=== PATIENT | female | born 1945 | race Caucasian/White ===

== ENCOUNTER 2018-03-04 15:03 | Emergency (ER) | payer OTHER, MEDICARE ==
[2018-03-04] MEDS ORDERED: VITAMIN C500 M6 PO (15:33)
[2018-03-04] MEDS ORDERED: VITAMIN E400 UNI3 PO (15:33)
[2018-03-04 15:40] LABS: ABSOLUTE BASOPHIL COUNT 0 /CUMM (0.0-0.2); ABSOLUTE EOSINOPHIL COUNT 0 /CUMM (0.0-0.7); ABSOLUTE LYMPH COUNT 1.1 /CUMM (1.2-3.4); ABSOLUTE MONOCYTE COUNT 1.4 /CUMM (0.10-0.60); BASOPHIL % 0 % (0.0-2.0); EOSINOPHIL % 0.1 % (0-5); GRANULOCYTE % 80.2 % (42.2-75.2); HEMATOCRIT 43.8 % (37-47); MEAN CORPUSCULAR HGB 31.5 PG (27.0-31.0); MEAN CORPUSCULAR HGB CONC 33.9 G/DL (33.0-37.0); MEAN CORPUSCULAR VOLUME 92.8 FL (81.0-99.0); MEAN PLATELET VOLUME 8.6 FL (7.4-10.4); PLATELET COUNT 269 /CUMM (130-400); RBC DISTRIBUTION WIDTH 14.6 % (11.5-14.5); RED BLOOD CELL CT 4.72 /CUMM (4.20-5.40); WHITE BLOOD CELL COUNT 12.5 /CUMM (4.8-10.8)
--- NOTE | 2018-03-04 16:49 | RADIOLOGY REPORT ---
EXAMINATION: XR CHEST CLINICAL INFORMATION: Fever and hemoptysis. COMPARISON: Chest radiography 10/22/2017. TECHNIQUE: 2 views of the chest were obtained. FINDINGS: The lungs are well expanded. There is left lower lung opacification with adjacent pleural effusion. No right lung consolidation. No pneumothorax. No pulmonary edema. Mediastinal contours are unchanged. No acute osseous abnormalities. IMPRESSION: Left lower lung opacification and adjacent pleural effusion. Recommend followup chest radiography upon resolution of symptoms or completion of therapy to ensure clearance.
--- NOTE | 2018-03-04 17:10 | ED GENERAL ADULT ---
History of Present Illness General Chief Complaint: Upper Respiratory Sx/Fever Stated Complaint: "HAD A COLD X3 WKS. COUGHING UP BLOOD NOW" Source: patient Exam Limitations: no limitations Vital Signs & Intake/Output Vital Signs & Intake/Output Vital Signs Date Time Temp Pulse Resp B/P B/P Pulse O2 O2 Flow FiO2 Mean Ox Delivery Rate 03/04 2004 124 185/94 98 Nasal 2.0L Cannula 03/04 1944 128 20 168/91 92 Room Air 03/04 193 133 162/104 03/04 193 124 180/92 03/04 1920 Room Air 03/04 1803 97.7 120 20 162/104 95 Room Air 03/04 1509 97.7 134 20 150/100 94 Room Air Room Air ED Intake and Output 03/05 0000 03/04 1200 Intake Total Output Total Balance Patient 113 lb Weight Weight Reported by Patient Measurement Method Allergies Coded Allergies: No Known Allergies (03/04/18) Reconcile Medications Ascorbate Calcium (Vitamin C) (Unknown Strength) TABLET (Unknown Dose) PO DAILY SUPPLEMENT (Reported) Vitamin E Acid Succinate (Vitamin E) (Unknown Strength) TABLET (Unknown Dose) PO DAILY SUPPLEMENT (Reported) Triage Note: TRIAGE: 72 Y/O FEMALE PRESENTS C/O COUGH AND "SICKNESS" X3 WEEKS. TACHYCARDIC AT 134 IN TRIAGE. EKG IN PROGRESS. AFEBRILE. Triage Nurses Notes Reviewed? yes HPI: This is a otherwise healthy 71-year-old female with history of remote pneumonia, presented to the emergency department with several episodes of hemoptysis earlier today. Patient states that she has been coughing on and off for at least 3 weeks. She denies any new symptoms of dyspnea, chest pain, exertional fatigue. 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 She does smoke about half pack cigarettes per day for several decades. She drinks wine a few times a week. She does note an unintentional 20 pound weight loss over the past several months. She attributes this to stopping her daily benzodiazepine. She denies any recent travel/trauma/other illness. She has no exogenous estrogen or history of blood clot. She denies any leg swelling. (Prasad CORONADO,Sriknath) Past History Travel History Traveled to [place] past 21 day No Medical History Any Pertinent Medical History? 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 No (Srikanth Parham MD) Review of Systems Review of Systems Constitutional: Reports: no symptoms. EENTM: Reports: no symptoms. Respiratory: Reports: cough, hemoptysis. Denies: orthopnea, short of breath, sputum production, stridor, wheezing. Cardiovascular: Reports: no symptoms. GI: Reports: no symptoms. Genitourinary: Reports: no symptoms. Musculoskeletal: Reports: no symptoms. Skin: Reports: no symptoms. Neurological/Psychological: Reports: no symptoms. Hematologic/Endocrine: Reports: no symptoms. (Srikanth Parham MD) Physical Exam Physical Exam General Appearance: well developed/nourished, no apparent distress, alert Head: atraumatic, normal appearance Eyes: Bilateral: normal appearance. Ears, Nose, Throat: normal pharynx, normal ENT inspection Neck: normal inspection, supple, full range of motion Respiratory: normal breath sounds, chest non-tender, no respiratory distress, quiet respiration, lungs clear Cardiovascular: regular rate/rhythm Gastrointestinal: soft, non-tender Back: normal inspection, normal range of motion Extremities: normal inspection, normal capillary refill, normal range of motion, no edema Neurologic/Psych: no motor/sensory deficits, awake, alert, oriented x 3, normal gait, normal mood/affect Core Measures ACS in differential dx? No CVA/TIA Diagnosis: No Sepsis Present: No Sepsis Focused Exam Completed? No (Srikanth Parham MD) Progress Differential Diagnoses I considered the following diagnoses in my evaluation of the patient: Pneumonia, bronchitis, pulmonary embolism, some concern for malignancy given unintentional weight loss and hemoptysis. Low suspicion for ACS, thoracic aortic disease. Plan of Care: Orders Procedure Date/time Status TROPONIN LEVEL 03/04 1516 Complete D-DIMER 03/04 1516 Complete COMPREHENSIVE METABOLIC PANEL 03/04 1516 Complete CBC WITHOUT DIFFERENTIAL 03/04 1516 Complete EKG 03/04 1509 Active Current Medications Sig/Simeon Start time Last Medication Dose Stop Time Status Admin Esmolol HCl 100 MG CONTINOUS INFUSION 03/04 1900 CAN (Brevibloc 100 MG Tina Inj) Laboratory Tests 03/04/18 1521: Anion Gap 10, Estimated GFR > 60, BUN/Creatinine Ratio 28.0 H, Glucose 132 H, Calcium 9.1, Total Bilirubin 0.8, AST 21, ALT 25, Alkaline Phosphatase 75, Troponin I 0.07, Total Protein 6.3, Albumin 3.4 L, Globulin 2.9, Albumin/ Globulin Ratio 1.2, D-Dimer High Sensitivty 669 H, CBC w Diff NO MAN DIFF REQ, RBC 4.72, MCV 92.8, MCH 31.5 H, MCHC 33.9, RDW 14.6 H, MPV 8.6, Gran % 80.2 H , Lymphocytes % 8.8 L, Monocytes % 10.9 H, Eosinophils % 0.1, Basophils % 0, Absolute Granulocytes 10.0 H, Absolute Lymphocytes 1.1 L, Absolute Monocytes 1.4 H, Absolute Eosinophils 0, Absolute Basophils 0 Plan for chest x-ray, EKG, labs including d-dimer, reassessment. Mild white count is noted. H&H is stable. Patient well-appearing on reassessment. D-dimer is mildly elevated. Will plan for CPAP study. PATIENT: DILIP PATHAK PRESENT AGE: 72 PATIENT ACCOUNT NO: [id number] : 46 LOCATION: [facility] ORDERING PHYSICIAN: Srikanth Parham MD SERVICE DATE: 03/04/18 EXAM TYPE: CAT - CTA CHEST-PULMONARY EMBOLISM EXAMINATION: CT ANGIOGRAM CHEST WITH AND WITHOUT CONTRAST (CT PULMONARY ANGIOGRAM FOR PE) CLINICAL INFORMATION: Cough, tachycardia, hemoptysis, weight loss, positive dimer. COMPARISON: Chest radiography earlier today. TECHNIQUE: Prior to contrast administration, noncontrast localization images were obtained. Subsequently, multidetector volumetric imaging was performed from the thoracic inlet to below the diaphragms following the administration of 70 mL Optiray 320 intravenous contrast. No contrast reaction reported. Sagittal, coronal, and MIP oblique sagittal reformatted images were obtained on the CT workstation, uploaded to PACS, and reviewed. Total exam dose-length product 184 mGy-cm. FINDINGS: QUALITY OF STUDY/CONTRAST BOLUS: Satisfactory PULMONARY ARTERIES: No central or segmental pulmonary emboli. THORACIC AORTA: There is a 7.5 x 3.7 x 3.9 cm pseudoaneurysm extending off of the posterior aspect of the descending thoracic aorta just above the level of the diaphragm. Suspect clotted blood product along the left aspect of the pseudoaneurysm. LUNG: There is left lower lobe consolidation and small adjacent pleural effusion. The pleural fluid measures simple fluid density. Mild emphysema. No evidence of pulmonary edema. MEDIASTINUM: Borderline cardiomegaly. No bulky mediastinal adenopathy. Scattered coronary artery calcification. CHEST WALL/AXILLA: No axillary or internal mammary lymphadenopathy. OSSEOUS STRUCTURES: No acute osseous abnormalities. Mild degenerative changes of the spine. UPPER ABDOMEN: No acute intra-abdominal abnormalities. No reflux of contrast into the hepatic veins to suggest elevated right heart pressures. IMPRESSION: 1. 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 Suspect clotted blood product along the left aspect of the pseudoaneurysm. 2. Left lower lobe consolidation with small pleural effusion. 3. No pulmonary embolism. 4. Additional nonacute findings as described above. This critical result was discussed with Dr. Parham at 6:20 PM on 03/04/2018 and it was ascertained that the content and urgency of the report was understood at the time of direct communication. VTE: Negative. DICTATED BY: Melquiades Kohler MD DATE/TIME DICTATED:03/04/181809 [employer]ARM[employer]ERS:YOBANI DATE/TIME TRANSCRIBED:03/04/181809 CONFIDENTIAL, DO NOT COPY WITHOUT APPROPRIATE AUTHORIZATION. <Electronically signed in Other Vendor System> SIGNED BY: Melquiades Kohler MD 03/04/18 535 This finding is discussed with the on-call vascular surgeon, he recommends starting esmolol, ranging transferred to [place]. Patient discussed with on-call thoracic surgeon at [place], ; he agrees with plan for esmolol, transferred to [place] via EMS. Patient remains stable while in the emergency department. Esmolol drip is started just prior to arrival of EMS. EMS will continue to titrate drip while in route. Patient is administered 1 mg of Lorazepam by EMS prior to leaving the department. Initial ED EKG: normal intervals, normal p-waves, normal sinus rhythm, no ST T wave changes (Prasad CORONADOSrikanth) Departure Departure Time of Disposition: 2024 Disposition: OTHER GENERAL HOSPITAL (ACUTE) Condition: Stable Clinical Impression Primary Impression: Descending thoracic aortic aneurysm Referrals: O'[place] MD,Herb Castaneda (PCP/Family) Departure Forms: Customer Survey General Discharge Information (Prasad CORONADO,Srikanth) PA/ASPHALT SPREADER Co-Sign Statement Statement: ED Attending supervision documentation- [] I saw and evaluated the patient. I have also reviewed all the pertinent lab results and diagnostic results. I agree with the findings and the plan of care as documented in the PA's/ASPHALT SPREADER's documentation. [x] I have reviewed the ED Record and agree with the PA's/ASPHALT SPREADER's documentation. [] Additions or exceptions (if any) to the PAs/ASPHALT SPREADER's note and plan are summarized below: [] (Lila CORONADO,Norma) Critical Care Note Critical Care Note Critical Care Time: 30-74 min (Srikanth Parham MD)
--- NOTE | 2018-03-04 18:37 | CT SCAN REPORT ---
EXAMINATION: CT ANGIOGRAM CHEST WITH AND WITHOUT CONTRAST (CT PULMONARY ANGIOGRAM FOR PE) CLINICAL INFORMATION: Cough, tachycardia, hemoptysis, weight loss, positive dimer. COMPARISON: Chest radiography earlier today. TECHNIQUE: Prior to contrast administration, noncontrast localization images were obtained. Subsequently, multidetector volumetric imaging was performed from the thoracic inlet to below the diaphragms following the administration of 70 mL Optiray 320 intravenous contrast. No contrast reaction reported. Sagittal, coronal, and MIP oblique sagittal reformatted images were obtained on the CT workstation, uploaded to PACS, and reviewed. Total exam dose-length product 184 mGy-cm. FINDINGS: QUALITY OF STUDY/CONTRAST BOLUS: Satisfactory PULMONARY ARTERIES: No central or segmental pulmonary emboli. THORACIC AORTA: There is a 7.5 x 3.7 x 3.9 cm pseudoaneurysm extending off of the posterior aspect of the descending thoracic aorta just above the level of the diaphragm. Suspect clotted blood product along the left aspect of the pseudoaneurysm. LUNG: There is left lower lobe consolidation and small adjacent pleural effusion. The pleural fluid measures simple fluid density. Mild emphysema. No evidence of pulmonary edema. MEDIASTINUM: Borderline cardiomegaly. No bulky mediastinal adenopathy. Scattered coronary artery calcification. CHEST WALL/AXILLA: No axillary or internal mammary lymphadenopathy. OSSEOUS STRUCTURES: No acute osseous abnormalities. Mild degenerative changes of the spine. UPPER ABDOMEN: No acute intra-abdominal abnormalities. No reflux of contrast into the hepatic veins to suggest elevated right heart pressures. IMPRESSION: 1. 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 Suspect clotted blood product along the left aspect of the pseudoaneurysm. 2. Left lower lobe consolidation with small pleural effusion. 3. No pulmonary embolism. 4. Additional nonacute findings as described above. This critical result was discussed with Dr. Parham at 6:20 PM on 03/04/2018 and it was ascertained that the content and urgency of the report was understood at the time of direct communication. VTE: Negative.
[2018-03-04 20:04] VITALS: BP 185/94
== END 2018-03-04 20:00 | disposition short-term general hospital (02) ==
LOC: ERH 15:03
PROVIDERS: Physician Assistant
DX: I71.2 Thoracic aortic aneurysm, without rupture (principal); R05 Cough
CPT/HCPCS: 71046; 93005; 93010; 96374; 96375; 99291; J0696; J7040